=== PATIENT | female | born 1995 | race Caucasian/White ===

== ENCOUNTER 2019-05-14 10:34 | Emergency (ER) | payer SELFPAY ==
[~2019-05-14] VITALS: Ht 160 cm; Wt 59.0 kg
[2019-05-14 10:38] VITALS: BP 114/73
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
[2019-05-14] MEDS ORDERED: NEOMYCIN/POLYMYXIN/BACITRACIN 0.9 GM/1 PKT TP ONE ×2 (11:08→11:10)
--- NOTE | 2019-05-14 11:08 | NUR ---
DR CONN AT BEDSIDE FOR PT EVALUATION
[2019-05-14] MEDS ORDERED: IBUPROFEN 800 MG TAB PO ONE (11:10)
[2019-05-14 11:12] VITALS: BP 108/63
--- NOTE | 2019-05-14 11:15 | NUR ---
PT AAO X4. EVEN AND UNLABORED BREATHING. NO SIGNS AND SYMPTOMS OF DISTRESS NOTED. [place] [employer] AT THE SCENE.
--- NOTE | 2019-05-14 11:17 | NUR ---
PERFORMED WOUND CARE TO PT ABRASION ON LT FOREARM, CLEANSED W/ NS, APPLIED NEOSPORIN, COVERED W/ 2X2, AND SECURED W/ TAPE. PERFORMED WC TO CONTUSION ON PT LT THIGH, CLEANSED W/ NS, APPLIED NEOSPORIN, COVERED W/ 4X4, AND SECURED W/ TAPE. PT TOLERATED PROCEDURE WELL.
--- NOTE | 2019-05-14 11:31 | NUR ---
[facility] AT BEDSIDE FOR PT BLOOD DRAW.
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
== END 2019-05-14 11:31 ==
LOC: MED 10:34
DX: S70.312A Abrasion, left thigh, initial encounter (principal); S50.812A Abrasion of left forearm, initial encounter; M25.562 Pain in left knee; Z02.89 Encounter for other administrative examinations; Z88.0 Allergy status to penicillin; V47.5XXA Car driver injured in collision with fixed or stationary object in traffic accident, initial encounter; Y93.89 Activity, other specified; Y92.89 Other specified places as the place of occurrence of the external cause; Y99.8 Other external cause status
CPT/HCPCS: 99283